=== PATIENT | female | born 1985 | race Caucasian/White ===

== ENCOUNTER 2018-02-16 08:10 | Emergency (ER) | payer OTHER ==
[2018-02-16] MEDS ORDERED: NS 0.9% 1000 ML* 1,000 ML IV ONE (08:34)
[2018-02-16] MEDS ORDERED: Ondansetron INJ* 2 MG/ML VIAL IV ONE (08:34)
[2018-02-16] MEDS ORDERED: Ketorolac INJ* 30 MG/ML 1 ML VIAL IV PUSH ONE (08:34)
--- NOTE | 2018-02-16 08:40 | ED ---
Back Pain - HPI Summary HPI Summary: This patient is a 32 year old F presenting to [facility] with a chief complaint of right sided lower back/flank pain that began this morning. 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 The patient rates the pain 10/10 in severity and describes it as sharp. Symptoms aggravated by movement. Patient reports nausea and numbness in UEs. Patient denies radiation into the ABD and LEs. She also denies injury or hx of back problems. Pt states she feels like she has to pee but I dont. Pt just finished LNMP 5 days ago. NKDA - History of Current Complaint Chief Complaint: EDFlankPain Stated Complaint: BACK PAIN Time Seen by Provider: 02/16/18 08:27 Hx Obtained From: Patient Onset/Duration: Still Present Timing: Constant Back Pain Location: Is Discrete @ Severity Initially: Severe Severity Currently: Severe Pain Intensity: 10 Pain Scale Used: 0-10 Numeric Character: Sharp Aggravating Symptom(s): Movement Associated Signs And Symptoms: Positive: Flank Pain. Negative: Abdominal Pain - Allergies/Home Medications Allergies/Adverse Reactions: Allergies Allergy/AdvReac Type Severity Reaction Status Date / Time bee venom protein (honey bee) Allergy Swelling Verified 02/16/18 08:16 PMH/Surg Hx/FS Hx/Imm Hx Endocrine/Hematology History: Denies: Hx Anticoagulant Therapy, Hx Diabetes, Hx Thyroid Disease Cardiovascular History: Denies: Hx Cardiomegaly, Hx Deep Vein Thrombosis, Hx Hypertension Respiratory History: Denies: Hx Chronic Bronchitis, Hx Chronic Obstructive Pulmonary Disease (COPD ), Hx Pleural Effusion, Hx Pulmonary Embolism GI History: Denies: Hx Gall Bladder Disease, Hx Gastroesophageal Reflux Disease, Hx Hiatal Hernia Neurological History: Denies: Hx CVA, Hx Dementia, Hx Developmental Delay Infectious Disease History: No Infectious Disease History: Reports: Traveled Outside the [place] in Last 30 Days - [place] - Family History Known Family History: Negative: Respiratory Disease, Seizure Disorder - Social History Alcohol Use: None Hx Substance Use: No Substance Use Type: Reports: None Hx Tobacco Use: No Smoking Status (MU): Never Smoked Tobacco Review of Systems Negative: Fever Genitourinary: Other - feels like she has to pee but I dont. Positive: flank pain Positive: Other - back pain All Other Systems Reviewed And Are Negative: Yes Physical Exam - Summary Physical Exam Summary: Appearance: Well appearing, no pain distress Skin: warm, dry, reflects adequate perfusion Head/face: normal Eyes: EOMI, ANALY ENT: mucous membranes moist Neck: supple, non-tender Respiratory: CTA, breath sounds present Cardiovascular: RRR, pulses symmetrical Abdomen: non-tender, soft Bowel Sounds: present Musculoskeletal: strength/ROM intact. Mild right sided lumbar low back is TTP. Sensation is normal. No incontinence. Neuro: normal, sensory motor intact, A&Ox3 Triage Information Reviewed: Yes Vital Signs On Initial Exam: Initial Vitals Temp Pulse Resp BP Pulse Ox 96.8 F 64 20 96/54 100 02/16/18 08:12 02/16/18 08:12 02/16/18 08:12 02/16/18 08:12 02/16/18 08:12 Vital Signs Reviewed: Yes Diagnostics - Vital Signs Vital Signs Temp Pulse Resp BP Pulse Ox 02/16/18 08:12 96.8 F 64 20 96/54 100 - Laboratory Lab Statement: Any lab studies that have been ordered have been reviewed, and results considered in the medical decision making process. - CT CT abd pelvis CT Interpretation Completed By: Radiologist - 1. At the lower pole collecting system of the right kidney there is a nonobstructive 3 mm calcification. 2. There is a mild degree of right-sided hydronephrosis. The distal right ureter becomes difficult to follow. There is a 6 mm calcification in the right hemipelvis that is questionably within the lumen of the right ureter. If this correlates to the patient's current clinical presentation then confident characterization of the ureter and location of the stone can be made with CT urography (if CT urogram is ordered, the noncontrast portion of the exam does not have to be repeated). ED physician has reviewed this radiology report. Re-Evaluation - Re-Evaluation First Eval Re-Evaluation Time: 09:38 Change: Improved Comment: Pt is feeling better after medication. Back Pain Course/Dx - Course Course Of Treatment: Patient presents with abrupt onset of atraumatic right flank pain. There is blood present in the urine. Pain is much better with Toradol. CT scan confirms suspicion for distal right sided ureteral stone likely explains the discomfort down into the pelvis as well as her nausea. Patient was feeling back to normal prior to disposition. She was given a dose of oral Flomax and will follow-up with the urologist. - Diagnoses Differential Diagnosis/HQI/PQRI: Positive: Renal Colic, Strain, Sprain, Other - Ovarian cyst Provider Diagnoses: Renal colic on right side, Ureterolithiasis Discharge - Sign-Out/Discharge Documenting (check all that apply): Patient Departure - Discharge Plan Condition: Improved Disposition: HOME Prescriptions: Naproxen [Naproxen 500 mg tab] 500 mg PO BID PRN #12 tablet.dr PRN Reason: Pain Ondansetron [Zofran Odt] 4 mg PO TID PRN #10 tab.rapdis PRN Reason: Nausea Tamsulosin CAP* [Flomax CAP*] 0.4 mg PO DAILY #3 cap Patient Education Materials: Kidney Stones (ED) Forms: *Work Release Referrals: [facility] [Outside] [facility] [Outside] Jaiden Garza MD [Medical Doctor] - Additional Instructions: Plenty of fluids. Return with fever, uncontrolled pain, vomiting, worse, new symptoms or other concerns. Strain urine. - Billing Disposition and Condition Condition: IMPROVED Disposition: Home - Attestation Statements Document Initiated by Scribe: Yes Documenting Scribe: Kevin Mayorga Provider For Whom Scribe is Documenting (Include Credential): Danie Burgess MD Scribe Attestation: Kevin Briones scrcastroed for Danie Burgess MD on 02/16/18 at 1429. Scribe Documentation Reviewed: Yes Provider Attestation: The documentation as recorded by the Kevin new accurately reflects the service I personally performed and the decisions made by Danie dixon MD
[2018-02-16 10:21] LABS: Urine Appearance Clear; Urine Blood 3+ (Negative); Urine Color Yellow; Urine Ketones Trace (Negative); Urine Protein Negative (Negative); Urine Red Blood Cell 3+(>10/hpf) (Absent); Urine Urobilinogen Negative (Negative); Urine White Blood Cell 1+(6-10/hpf) (Absent)
--- NOTE | 2018-02-16 11:44 | RAD ---
CLINICAL HISTORY: Right flank pain and hematuria COMPARISON: None TECHNIQUE: Noncontrast CT examination of the abdomen and pelvis from the lung bases through the initial tuberosities. FINDINGS: VISUALIZED LUNG BASES: The visualized lung bases are grossly clear. There is no pleural effusion. ABDOMEN AND PELVIS: Evaluation of the solid organs and vasculature is limited without intravenous contrast. The liver, spleen, pancreas and adrenal glands are grossly normal in appearance. The gallbladder is normal. The left kidney is normal in appearance without focal mass, calcification or signs of hydronephrosis. At the lower pole of the right kidney there is a 3 mm calcification (axial image 62 and coronal image 41). There is a mild degree of right-sided hydronephrosis. The proximal right ureter is not pathologically dilated measuring 6 mm in diameter. The lower half of the right ureter is difficult to follow. At the right hemipelvis there is a calcification measuring just under 6 mm in greatest dimension (axial image 1:30 and coronal image 52). It is uncertain whether this is within the lumen of the ureter or outside of the ureter. There are no calculi at either ureterovesical junction or in the urinary bladder lumen. The small and large bowel are not distended.The patient's normal appendix is identified in the right lower quadrant. There is no gross retroperitoneal or mesenteric lymphadenopathy. The pelvic viscera is normal in appearance. The abdominal aorta and iliac arteries are normal in course and diameter. There are no sinister bone lesions. IMPRESSION: 1. At the lower pole collecting system of the right kidney there is a nonobstructive 3 mm calcification. 2. There is a mild degree of right-sided hydronephrosis. The distal right ureter becomes difficult to follow. There is a 6 mm calcification in the right hemipelvis that is questionably within the lumen of the right ureter. If this correlates to the patient's current clinical presentation then confident characterization of the ureter and location of the stone can be made with CT urography (if CT urogram is ordered, the noncontrast portion of the exam does not have to be repeated).
[2018-02-16] MEDS ORDERED: Tamsulosin CAP* 0.4 MG PO ONE (11:56)
[2018-02-16 12:24] VITALS: BP 101/51
== END 2018-02-16 13:21 | disposition home or self-care (01) ==
LOC: ED 08:10
DX: N20.1 Calculus of ureter (principal); N23 Unspecified renal colic
CPT/HCPCS: 74176; 81003; 81015; 87086; 96361; 96374; 96375; 99283; J1885; J2405